=== PATIENT | male | born 1960 | race Caucasian/White ===

== ENCOUNTER 2020-05-24 08:22 | Day surgery (SDC) | payer BC ==
[~2020-05-24] VITALS: Ht 182.9 cm; Wt 81.8 kg
[~2020-05-24 08:22] MED LIST: FLUTICASONE PRO16 GM NS; IBUPROFEN600 MG PO; LEVITRA10 MG PO; PIROXICAM20 MG PO
--- NOTE | 2020-05-24 10:44 | NUR ---
05/24/20 1044 Jennifer Crawford 1037 PT TO PACU SLEEPINGBUT AROUSABLE.
--- NOTE | 2020-05-24 11:41 | OR ---
[facility] [address], [place] [address] Signed DATE OF OPERATION: 05/24/2020 SURGEON: Clayton Branch MD PREOPERATIVE DIAGNOSES: 1. Unremarkable colonoscopy in 2015 at age 55. 2. Father with colonic polyps, age 70. 3. Chronic irritable bowel syndrome with diarrhea. POSTOPERATIVE DIAGNOSES: 1. Mild gastroduodenitis. 2. Small hiatal hernia (37-35 cm). 3. 5 mm polyp at 70 cm. PROCEDURE: 1. EGD with CLOtest and biopsies of the duodenum, pyloric bulb, antrum and GE junction. 2. Colonoscopy with hot biopsy and random cold biopsies. ESTIMATED BLOOD LOSS: None. INDICATIONS: Rui is a 60-year-old gentleman, who returns for a repeat colonoscopy. However, he has had lifelong chronic diarrhea most likely associated with irritable bowel syndrome. His primary care provider wanted him to have upper endoscopy for evaluation along with biopsies. We know Rui had a negative colonoscopy back in 2014. His father had colonic polyps at age 70. In the office, I gave Rui and his pamphlets on both upper and lower endoscopy. They understand the nature of the two tests. They understand there is risk including, but not limited to gas bloating, crampy abdominal pain, bleeding, perforation requiring surgery, and missed diagnosis. He also understands the need for IV conscious sedation. They had expressed understanding and wished to proceed. PROCEDURE NOTE: Rui was taken into our endoscopy suite and placed in the left lateral decubitus position. He was given IV sedation with 6 mg of Versed and 100 mcg of fentanyl to cover both cases. The posterior oropharynx was anesthetized with lidocaine spray. A bite block was utilized for the upper endoscopy. The adult gastroscope was introduced advanced out into the third portion of the duodenum without difficulty under direct visualization of the camera. We took a biopsy of the duodenum for pathologic review Electronically Signed By: CLAYTON BRANCH MD 05/24/20 1141 PATIENT NAME: VIPIN HANEY OPERATIVE REPORT DATE OF : 56 REPORT #: [id number] PHYSICIAN: CLAYTON BRANCH MD PCP: ATIYA NARAYAN DO REPORT IS CONFIDENTIAL AND NOT TO BE RELEASED WITHOUT AUTHORIZATION [facility] [address], [place] [address] Signed because of the history of diarrhea. He had very mild irritation in the pyloric bulb and the stomach. Consequently, we took a biopsy of the pyloric bulb and the antrum for pathologic review. An additional biopsy came out of the antrum for CLOtest. Upon retroflexion of scope, we can see a small hiatal hernia. It measured out 37 back to 35 cm. The scope was withdrawn up through the area of GE junction, which was compliant without stricture. There was no gastric or esophageal varices. The Z-line remains intact. There was no Shaw's mucosa. No distal esophagitis. The middle and upper esophagus were unremarkable. After this, the gas was suctioned out and the gastroscope removed. Rui tolerated the upper endoscopy quite well. Rui was rotated into the left lateral decubitus position. He was maintained on IV sedation with Versed and fentanyl. A digital rectal exam was performed. His prostate was mildly enlarged, moderately indurated with the left a little more prominent than the right. The adult colonoscope was then introduced, advanced all around into the cecum under direct visualization of camera without difficulty. He had just a little bit of stool in the cecum right behind the ileocecal valve. We could not quite reach that area. We had taken pictures throughout for photodocumentation. The scope was then slowly withdrawn. The above-mentioned polyps was easily removed with a hot biopsy forceps. We did not see any diverticulosis. We took several random biopsies of the colon because of history of diarrhea. Once in the rectum, the scope was then retroflexed and there was no additional pathology noted above the anal canal. After this, the gas was suctioned out and colonoscope removed. Rui tolerated the lower endoscopy quite well. RECOMMENDATIONS: I will see Rui back in my office in 7 to 14 days to review his results. Clayton Branch MD ALB/MODL /[id number] cc: DO Clayton Segovia MD Electronically Signed By: CLAYTON BRANCH MD 05/24/20 1141 PATIENT NAME: VIPIN HANEY OPERATIVE REPORT DATE OF : 56 REPORT #: [id number] PHYSICIAN: CLAYTON BRANCH MD PCP: ATIYA NARAYAN DO REPORT IS CONFIDENTIAL AND NOT TO BE RELEASED WITHOUT AUTHORIZATION [address] [address] Signed Copies: ATIYA NARAYAN ANDREW L MD ~ Electronically Signed By: CLAYTON BRANCH MD 05/24/20 1141 PATIENT NAME: VIPIN HANEY OPERATIVE REPORT DATE OF : 56 REPORT #: [id number] PHYSICIAN: CLAYTON BRANCH MD PCP: ATIYA NARAYAN DO REPORT IS CONFIDENTIAL AND NOT TO BE RELEASED WITHOUT AUTHORIZATION
--- NOTE | 2020-05-28 15:27 | PATH ---
[facility] [facility] [address] [facility] [place] [address] Signed SPECIMEN(S): A DUODENUM SPECIMEN(S): B PYLORIC BULB SPECIMEN(S): C ANTRUM SPECIMEN(S): D GE JUNCTION SPECIMEN(S): E COLON POLYP 70 CM SPECIMEN(S): F COLON BIOPSY SPECIMEN SOURCE: A. DUODENUM B. PYLORIC BULB C. ANTRUM D. GE JUNCTION E. COLON POLYP 70 CM F. COLON BIOPSY CLINICAL HISTORY: Esophagogastroduodenoscopy/colonoscopy. Family history of colon CA; IBS/diarrhea. MICROSCOPIC DESCRIPTION: Histologic sections of all submitted blocks are examined by light microscopy. These findings, together with the gross examination, support the pathologic diagnosis. FINAL PATHOLOGIC DIAGNOSIS: A. Duodenum, biopsy: - Duodenal mucosa with no histopathologic abnormality. - Negative for increased intraepithelial lymphocytes. - Negative for dysplasia or malignancy. B. Pyloric bulb, biopsy: - Duodenal type mucosa with mild Pedrito's gland hyperplasia, compatible with duodenal bulb type mucosa. - Negative for increased epithelial lymphocytes. - Negative for dysplasia or malignancy. C. Stomach, antrum, biopsy: - Antral mucosa with mild chronic, inactive gastritis. - Negative for Helicobacter organisms on HE stain. - Negative for dysplasia or malignancy. D. Gastroesophageal junction, biopsy: - Squamous mucosa with chronic inflammation and reactive epithelial changes, consistent with reflux esophagitis. - Negative for intestinal metaplasia, dysplasia, or malignancy. PATIENT NAME: VIPIN HANEY PATHOLOGY DATE OF : 56 REPORT #: [id number] PHYSICIAN: FELIPE CORDON PCP: ATIYA NARAYAN DO REPORT IS CONFIDENTIAL AND NOT TO BE RELEASED WITHOUT AUTHORIZATION [facility] [address] [place], [place] [address] Signed E. Colon, polyp at 70 cm, polypectomy: - Fragments of tubular adenoma. - Negative for high-grade dysplasia or malignancy. F. Colon, biopsy: - Colonic mucosa with no histopathologic abnormality. - Negative for active, chronic, or microscopic colitis. - Negative for dysplasia or malignancy. NAL:cml:C2NR GROSS DESCRIPTION: Six specimens are received in six containers, labeled "CB." A. The specimen, labeled "CB," and designated on the requisition "duodenum," is received in formalin and consists of one berumen soft tissue fragment that measures 0.3 cm in greatest dimension. The specimen is entirely submitted in cassette (A1). B. The specimen, labeled "CB," and designated on the requisition "pyloric bulb," is received in formalin and consists of one berumen soft tissue fragment that measures 0.3 cm in greatest dimension. The specimen is entirely submitted in cassette (B1). C. The specimen, labeled "CB," and designated on the requisition "antrum," is received in formalin and consists of one berumen soft tissue fragment that measures 0.4 cm in greatest dimension. The specimen is entirely submitted in cassette (C1). D. The specimen, labeled "CB," and designated on the requisition "GE junction," is received in formalin and consists of one berumen soft tissue fragment that measures 0.5 cm in greatest dimension. The specimen is entirely submitted in cassette (D1). E. The specimen, labeled "CB," and designated on the requisition "colon polyp at 70 cm," is received in formalin and consists of a three berumen soft tissue fragments that measure 0.3 cm in greatest dimension. The specimen is entirely submitted in cassette (E1). F. The specimen, labeled "CB," and designated on the requisition "colon biopsy," is received in formalin and consists of two berumen soft tissue fragments that measure 0.3 cm in greatest dimension. The specimen is entirely submitted in cassette (F1). AT (under the direct supervision of a pathologist) The Gross Description was prepared using a voice recognition system. The report was reviewed for accuracy; however, sound-alike word errors, addition and/or deletions may occur. If there is any PATIENT NAME: VIPIN HANEY PATHOLOGY DATE OF : 56 REPORT #: [id number] PHYSICIAN: FELIPE CORDON PCP: ATIYA NARAYAN DO REPORT IS CONFIDENTIAL AND NOT TO BE RELEASED WITHOUT AUTHORIZATION [facility] [address] [place], [place] [address] Signed question about this report, please contact Client Services. PERFORMING LABORATORY: The technical component was performed by [facility] [address] (Solar Systems Designer: Rona Nguyen MD; CLIA# [id number]). [facility], [address] [address] (CLIA# [id number]). Diagnostician: Madisyn Singh MD Pathologist Electronically Signed 05/28/2020 Copies: ~ PATIENT NAME: JYOTIANUPAMAVIPIN KENDALL PATHOLOGY DATE OF : 56 REPORT #: [id number] PHYSICIAN: FELIPE CORDON PCP: ATIYA NARAYAN DO REPORT IS CONFIDENTIAL AND NOT TO BE RELEASED WITHOUT AUTHORIZATION
== END 2020-05-24 11:20 | disposition home or self-care (01) ==
LOC: OPS 08:22 → DS 08:28 → OPS 09:45 → DS 09:45 → OPS 11:20
PROVIDERS: ATTEND Colon & Rectal Surgery
PROC: 0DB48ZX Excision of Esophagogastric Junction, Via Natural or Artificial Opening Endoscopic, Diagnostic (ICD-10-PCS; 2020-05-24)
PROC: 0DBH8ZX Excision of Cecum, Via Natural or Artificial Opening Endoscopic, Diagnostic (ICD-10-PCS; 2020-05-24)
PROC: 0DBB8ZX Excision of Ileum, Via Natural or Artificial Opening Endoscopic, Diagnostic (ICD-10-PCS; 2020-05-24)
PROC: 0DB98ZX Excision of Duodenum, Via Natural or Artificial Opening Endoscopic, Diagnostic (ICD-10-PCS; principal; 2020-05-24 09:45)
PROC: 0DB78ZX Excision of Stomach, Pylorus, Via Natural or Artificial Opening Endoscopic, Diagnostic (ICD-10-PCS; 2020-05-24 09:45)
DX: K63.5 Polyp of colon (principal); K29.90 Gastroduodenitis, unspecified, without bleeding; K44.9 Diaphragmatic hernia without obstruction or gangrene; K58.0 Irritable bowel syndrome with diarrhea; M51.36 Other intervertebral disc degeneration, lumbar region; M54.30 Sciatica, unspecified side; N40.0 Benign prostatic hyperplasia without lower urinary tract symptoms; Z86.010 Personal history of colon polyps; Z83.71 Family history of colonic polyps; Z72.0 Tobacco use
CPT/HCPCS: 86677; 99153; G0500; J2250; J3010; J7121

== ENCOUNTER 2020-06-15 06:30 | Day surgery (SDC) | payer OTHER, BC ==
[~2020-06-15] VITALS: Ht 182.9 cm; Wt 80.0 kg
[2020-06-15] MEDS ORDERED: HYDROCODON-ACE1 EA10 PO (08:21)
[2020-06-15] MEDS ORDERED: DICLOFENAC SODI75 MG PO (08:21)
--- NOTE | 2020-06-15 08:40 | NUR ---
06/15/20 0840 Val Kessler 0818- PT TO PACU IN SF POSITION. OPENS EYES TO VOICE. DROWSY. BREATHING EASY AND UNLABORED. SPO2 >95% ON 8 L O2 VIA SIMPLE MASK. DENIES PAIN NAUSEA OR DIZZINESS. PT ENCOURAGED TO TAKE DEEP BREATHGS. 0826- PT REMAINS AWAKE. BREATHING EASY AND UNLABORED. O2 TITRATED DOWN TO ROOM AIR. VSS. ICE APPLIED TO KNEE. KNEE ELEVATED. 0835- PT PREFERS NOT TO HAVE PO AT THIS TIME. SPO2 >95% ON ROOM AIR. VSS. PT CONTINUES TO DENY PAIN NAUSE AND DIZZINESS.
--- NOTE | 2020-06-15 09:05 | NUR ---
PATIENT TO ROOM BEDSIDE REPORT FROM MAME MALLOY. PATIENT AWAKE, REPORTS PAIN 3/10 ON PAIN SCALE. TOLERATED SNACK, ADMIINSTERED PO PAIN MEDICAITON PER APR. DRESSING TO RIGHT KNEE C/D/I WITH ICE IN PLACE. CALL LIGHT WITHIN REACH, AT BEDSIDE.
--- NOTE | 2020-06-15 10:10 | NUR ---
PATIENT UP TO BATHROOM VOIDED WELL. PAIN DECREASED TO 1/10 ON PAIN SCALE. DRESSING C/D/I TO RIGHT KNEE. REMOVED IV, PRESSURE DRESSING IN PLACE. PROVIDED DISCHARGE INSTRUCTION, ANSWERED QUESTIONS AND CONCERNS. VSS. PROVIDED WHEELCHAIR RIDE OUT TO VEHICLE. PATIENT TRANSFERED WELL INTO POV. PRESENT FOR DISCHARGE INSTRUCTION AT BEDSIDE.
--- NOTE | 2020-06-18 07:01 | OR ---
[facility] [address] [place], [place] [address] Signed DATE OF OPERATION: 06/15/2020 SURGEON: Kanwal Crawford MD PREOPERATIVE DIAGNOSIS: Medial meniscus tear of right knee. POSTOPERATIVE DIAGNOSIS: Medial meniscus tear of right knee. PROCEDURE PERFORMED: Right knee arthroscopy with partial medial meniscectomy. KEY ACCOUNT EXECUTIVE: None. ANESTHESIA: General. BLOOD LOSS: Minimal. BRIEF HISTORY: Bakari is a 60-year-old gentleman with pain and catching in his knee. MRI was consistent with medial meniscus tear. Risks and benefits of operative treatment were discussed with him. He elected to proceed. DESCRIPTION OF PROCEDURE: Once consent was obtained, he was taken to the operating room. After adequate anesthesia, he was placed on operating room table. All downside pressure points were well padded. The left leg was flexed, abducted, and externally rotated on a well-padded leg daniels, the right was placed in well-padded proximal thigh leg daniels with no tourniquet. The leg was then prepped and draped in a standard sterile fashion. Prior to this, we did inject the portal sites with 0.25% Marcaine with epinephrine under alcohol prep. The standard inferior lateral and superolateral portals were established and scope was introduced in the knee. ARTHROSCOPIC FINDINGS: Mild synovitis was noted throughout the knee. The patella was noted to be stable and tracked well. 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 Medial Electronically Signed By: KANWAL CRAWFORD MD 06/18/20 0701 PATIENT NAME: BAKARI HANEY OPERATIVE REPORT DATE OF : 56 REPORT #: [id number] PHYSICIAN: KANWAL CRAWFORD MD PCP: ATIYA NARAYAN DO REPORT IS CONFIDENTIAL AND NOT TO BE RELEASED WITHOUT AUTHORIZATION [facility] [address] [place], [place] [address] Signed and lateral gutters were clear. ACL and PCL were intact. Lateral compartment showed no meniscus tear, but there was grade 2 to grade 3 chondromalacia in the anterior medial aspect. The medial compartment showed a horizontal tear of the meniscus posteriorly and extending anteriorly. The chondral surfaces were intact. Standard inferomedial portal was established after localization using a spinal needle. The straight and curved biters were then used to trim the meniscus back to a stable rim. The meniscus was then smoothed and debris was evacuated. The scope was then withdrawn. Portals were closed with 3-0 nylon. The knee was injected with 60 mg of Toradol at the end of the procedure. The wounds were dressed with Adaptic, ABD, and Mark wrap. He tolerated the procedure well. All sponge, needle, and instrument counts were correct. Kanwal Crawford MD BA/TIFFANIEL /[id number] Copies: ~ Electronically Signed By: KANWAL CRAWFORD MD 06/18/20 0701 PATIENT NAME: BAKARI HANEY OPERATIVE REPORT DATE OF : 56 REPORT #: [id number] PHYSICIAN: KANWAL CRAWFORD MD PCP: ATIYA NARAYAN DO REPORT IS CONFIDENTIAL AND NOT TO BE RELEASED WITHOUT AUTHORIZATION
== END 2020-06-15 10:10 | disposition home or self-care (01) ==
LOC: DS 06:30
PROVIDERS: ATTEND Specialist
PROC: 0SBC4ZZ Excision of Right Knee Joint, Percutaneous Endoscopic Approach (ICD-10-PCS; principal; 2020-06-15 07:45)
DX: S83.241A Other tear of medial meniscus, current injury, right knee, initial encounter (principal)
CPT/HCPCS: 01400; J0690; J1100; J1885; J2001; J2405; J2704; J3010; J7121